=== PATIENT | female | born 1940 | race Caucasian/White ===

== ENCOUNTER 2019-11-25 14:31 | Outpatient (CLI) | payer MEDICARE, SELFPAY ==
--- NOTE | ~2019-11-25 | XR_ITS ---
XR chest 2V DATE: 11/25/2019 14:51 INDICATION: Cough, shortness of breath TECHNIQUE: PA and lateral views COMPARISON: 02/20/2018 portable AP chest FINDINGS: Heart size is within normal range. There is aortic calcification. No hilar or mediastinal e nlargement. There is suggestion of a subtle opacity overlying the lower left paraspinal area. Questio nable 1 cm opacity overlying right lung base. Lung mass cannot be excluded. CT thorax examination wit h IV contrast material is recommended. There is mild infiltrate, atelectasis or scarring at the lung bases, left greater than right. Surgical clips, right upper quadrant, consistent with cholecystectomy. Diffuse osteopenia. IMPRESSION: Cannot exclude mass density in the posteromedial left lower lobe or right lung base; roya mmend CT thorax with IV contrast material Mild infiltrate, atelectasis and/or scarring at the lung bases, left greater than right Dr. Larsen telephoned the report including possible lung masses and recommendation for an IV contrast C T thorax examination to Dr. Ramirez on 11/25/2019 at 1310 hours Reviewed, dictated and finalized at location B. DULE ANNOUNCER IMPRESSION: Cannot exclude mass density in the posteromedial left lower lobe or right lung base; recommend CT thorax with IV contrast material Mild infiltrate, atelectasis and/or scarring at the lung bases, left greater th an right Dr. Larsen telephoned the report including possible lung masses and recommendatio n for an IV contrast CT thorax examination to Dr. Ramirez on 11/25/2019 at 1310 hours
== END 2019-11-25 14:32 | disposition home or self-care (01) ==
LOC: ANHIMG 14:34
PROVIDERS: PCP Family Medicine; Visit Provider Physician Assistant
DX: R06.02 Shortness of breath (principal); R05 Cough; J98.11 Atelectasis
CPT/HCPCS: 71046

== ENCOUNTER 2019-12-10 09:02 | Outpatient (CLI) | payer MEDICARE, SELFPAY ==
--- NOTE | ~2019-12-10 | CT_ITS ---
EXAMINATION: CT chest w con DATE: 12/10/2019 09:54 INDICATION: Possible mass seen on recent chest x-ray TECHNIQUE: Computed tomography (CT) of the chest was performed with 75 cc Omnipaque 350 intravenous c ontrast. The dose-length product was 165.16 mGy-cm. Automated exposure control and iterative reconstr uction technique were employed. COMPARISON: Chest x-ray dated 11/25/2019 FINDINGS: There is lingular and left lower lobe airspace disease. Calcified granuloma in the upper lo bes. Right basilar atelectasis. No endobronchial lesions. There is mediastinal lymphadenopathy. Right paratracheal lymph node measures 1.7 cm. Small right pleural effusion. Status post cholecystectomy. Fatty infiltration of the liver. Calcified granulomas of the spleen. Sma ll hiatal hernia. IMPRESSION: 1. Lingular and left lower lobe airspace disease which may represent atelectasis or developing pneumo bigg. 2: Small right pleural effusion. 3: Mediastinal lymphadenopathy, nonspecific. 4: Elevated right diaphragm, suspicious for phrenic nerve paralysis. Reviewed, dictated and finalized at location A. ATOR TECHNICIAN IMPRESSION: 1. Lingular and left lower lobe airspace disease which may represent atelectasi s or developing pneumonia. 2: Small right pleural effusion. 3: Mediastinal lymphadenopathy, nonspecific. 4: Elevated right diaphragm, suspicious for phrenic nerve paralysis.
[2019-12-10 09:54] LABS: Estimated Glomerular Filt Rate 43
== END 2019-12-10 09:03 | disposition home or self-care (01) ==
PROVIDERS: PCP Family Medicine; Visit Provider Physician Assistant
DX: J98.6 Disorders of diaphragm (principal); J90 Pleural effusion, not elsewhere classified; R59.1 Generalized enlarged lymph nodes; R91.8 Other nonspecific abnormal finding of lung field; R93.89 Abnormal findings on diagnostic imaging of other specified body structures; R06.02 Shortness of breath; R05 Cough
CPT/HCPCS: 36415; 71260; Q9967

== ENCOUNTER 2020-12-08 17:20 | Inpatient (IN) | payer MEDICARE, SELFPAY ==
[2020-12-08] VITALS (9 sets, daily range): BP systolic 148–183; BP diastolic 77–97; PULSE 77–92; RESP 14–23; TEMP 36.5–36.8; O2SAT 96–98; BMI 25.4
--- NOTE | ~2020-12-08 | CT_ITS ---
EXAMINATION: CT brain wo con INDICATION: Altered mental status COMPARISON: None TECHNIQUE: Standard unenhanced head CT. The dose-length product (DLP) was 605.33 mGy-cm. The mA was a djusted according to patient size. Iterative reconstruction technique was employed. FINDINGS: There is no acute intraparenchymal hemorrhage. No evidence of mass lesion. There is low att enuation in the right parietal lobe with loss of hooper-white differentiation. Old infarcts are again n oted in the right cerebellum. There is mild periventricular and subcortical hypodensity probably rela claude to small vessel ischemic disease. There is mild prominence of the sulci and ventricles related to cerebral atrophy. Intracranial calcified cerebral atherosclerosis is noted. There are no extra-axial collections. There is no mass effect or midline shift. Changes in the globes are likely from ocular lens surgery. There are changes of occipital craniotomy with surgical clips in the area of the right posterior inferior cerebellar artery. The visualized sinuses and mastoid air cells are well aerated. IMPRESSION: 1. Findings consistent with acute to subacute infarction in the right parietal lobe. These findings w ere discussed with Dr. Ahsan M.D. in the Emergency Department at 1925 hours on 12/08/2020. 2. Age related findings. Reviewed, dictated and finalized at location A. OTECHNOLOGIST IMPRESSION: 1. Findings consistent with acute to subacute infarction in the right parietal lobe. These findings were discussed with Dr. Ahsan M.D. in the Emergency Dep artment at 1925 hours on 12/08/2020. 2. Age related findings.
--- NOTE | ~2020-12-08 | XR_ITS ---
EXAMINATION: XR abdomen/kub 1V EXAM DATE: 12/14/2020 13:31 INDICATION: Abdominal distension. TECHNIQUE: Frontal projection(s) of the abdomen for interpretation. Comparison is made to prior exami nation from 07/29/2011. FINDINGS: There is moderate amount of gas. No small bowel dilation, nonobstructive bowel gas patte rn. There are no suspicious calcifications identified. There is no organomegaly suspected. Mild lumbar levoscoliosis. There are cholecystectomy clips. IMPRESSION: Moderate amount of colonic gas. Reviewed, dictated and finalized at location B. LITY SALES AND ADMIN
--- NOTE | ~2020-12-08 | US_ITS ---
EXAMINATION: US carotid duplex BI EXAM DATE: 12/09/2020 09:29 INDICATION: Acute right parietal stroke. TECHNIQUE: Grayscale, color and pulsed Doppler images of the cervical carotid arteries were obtained . The degree of vessel stenosis is placed in one of the following categories: normal, <50% stenosis, 50-69% stenosis, >=70% stenosis but less than near-occlusion, near-occlusion, or occlusion. Note that percent stenosis relative to normal distal artery lumen diameter is indirectly measured from velocit y measurements as described by Joselito, et al. Radiology 2003; 229:340-346. There is no prior study fo r comparison. FINDINGS: RIGHT SIDE: Right common carotid artery peak systolic velocity (PSV in cm/s): 65 Right bulb/internal carotid artery peak systolic velocity (PSV in cm/s): 106 Right internal carotid artery end diastolic velocity (EDV in cm/s): 29 Right ICA/CCA peak systolic ratio: 1.6 Right external carotid artery peak systolic velocity (PSV in cm/s): 77 Right vertebral artery antegrade flow: yes There is moderate carotid bulb plaque. Velocity and Doppler waveforms in the common and internal carotid arteries is normal. LEFT SIDE: Left common carotid artery peak systolic velocity (PSV in cm/s): 94 Left bulb/internal carotid artery peak systolic velocity (PSV in cm/s): 84 Left internal carotid artery end diastolic velocity (EDV in cm/s): 21 Left ICA/CCA peak systolic ratio: 0.9 Left external carotid artery peak systolic velocity (PSV in cm/s): 79 Left vertebral artery antegrade flow: yes There is mild to moderate carotid bulb plaque. Velocity and Doppler waveforms in the common and internal carotid arteries is normal. IMPRESSION: 1. Less than 50 percent stenosis in the right internal carotid artery. 2. Less than 50 percent stenosis in the left internal carotid artery. Reviewed, dictated and finalized at location A. WASHING MACHINE OPERATOR
--- NOTE | 2020-12-08 17:52 | ECG_ITS ---
Measurements Intervals [place] Rate: 84 P: 23 WA: 198 QRS: -29 QRSD: 85 T: 54 QT: 389 QTc: 462 Interpretive Statements SINUS RHYTHM CANNOT RULE OUT SEPTAL INFARCT, AGE INDETERMINATE ABNORMAL ECG Electronically Signed On 12-08-2020 20:16:18 FABRIC PATTERN GRADER by Pee Mendez D.O.
--- NOTE | 2020-12-08 18:04 | ED.NEUROSD ---
HPI - Neuro Symptoms/Deficit General Chief Complaint: Neuro Symptoms/Deficit Stated Complaint: left sided weakness, confusion Time Seen by Provider: 12/08/20 17:46 Source: patient and family Mode of arrival: wheelchair Limitations: altered mental status and dementia History of Present Illness HPI Narrative: Patient is an 79-year-old female brought in due to not speaking full sentences , running into [place] with her walker, does not seem coordinated , confused more than usual started yesterday. Patient is a very poor historian unable to get any history from the patient due to her mental status. Related Data Home Medications Medication Instructions Recorded Confirmed omeprazole 20 mg capsule,delayed 20 mg PO DAILY 09/05/19 12/02/19 release loratadine [Claritin] 10 mg PO DAILY 12/08/20 meclizine 25 mg PO BID 12/08/20 Allergies Allergy/AdvReac Type Severity Reaction Status Date / Time adhesive tape Allergy Unknown Blister Verified 12/08/20 17:40 alendronate sodium Allergy Unknown Nausea Verified 12/08/20 17:40 codeine Allergy Unknown Confusion Verified 12/08/20 17:40 iodine Allergy Unknown Blister Verified 12/08/20 17:40 NSAIDS (Non-Steroidal Allergy Unknown Unknown Verified 12/08/20 17:40 Anti-Inflamma Penicillins Allergy Unknown Hives Verified 12/08/20 17:40 Sulfa (Sulfonamide Allergy Unknown Hallucinati Verified 12/08/20 17:40 Antibiotics) ons Review of Systems Review of Systems: ROS unobtainable: Yes unobtainable due to mental status PMFSH Past Medical History Medical History Anemia Aneurysm Arthritis Asthma Elevated lipids Headache, migraine Hypertension Thyroid disease Surgical History Surgical History History of appendectomy History of cholecystectomy History of hysterectomy History of tonsillectomy Family History Family History Mother Family history of kidney disease Family history of coronary artery disease Family history of renal failure Father Family history of malignant melanoma Family history of lung cancer Family history of congestive heart failure Social History Social History Smoking status: Never smoker Second hand tobacco smoke exposure: No Alcohol intake: never Substance use: never Substance use type: does not use Gender identity (if verbalized by the patient): Female Exam Const: General: cooperative, healthy appearing, comfortable, no acute distress, well developed, alert and awake Orientation/consciousness: oriented to person, oriented to place, No oriented to time and No patient oriented x3 Limitations: no limitations HENMT: Head: normal to inspection, normocephalic and atraumatic Ears: hearing grossly normal bilaterally, TM normal on the right and TM normal on the left General nose exam: Normal external nose present, Normal nares present and No nasal discharge present Face and sinus: normal facial exam Mouth: Yes Normal oral and palatal mucosa present, Yes lip normal, Yes tongue normal and Yes oropharynx normal Throat: posterior oropharynx normal, tonsils normal and uvula midline Eyes: General: appearance normal, both eyes and all related structures Pupils: Equal, round and reactive pupils present EOM: EOMs intact bilaterally Neck: Neck: normal visual inspection, full ROM, no lymphadenopathy and no meningeal signs Chest: Chest palpation & inspection: normal inspection of the chest Resp: Effort & Inspection: normal respiratory effort, able to speak in complete sentences, no respiratory distress and not tachypneic Auscultation: clear to auscultation bilaterally, no crackles, no rales, no rhonchi and no wheezes Cardio: Rate: regular rate Rhythm: regular rhythm GI: Inspection: normal to inspection GI Palp: No abdominal te
[2020-12-08] MEDS: LACTATED RINGERS 1,000 ML 999 ML IV CONT (18:18)
[2020-12-08 18:24] LABS: Basophils Absolute Auto 0.1 K/mm3 (0.0-0.1); Basophils Percent Auto 0.6 % (0.2-1.2); Eosinophils Absolute Auto 0.1 K/mm3 (0-0.3); Eosinophils Percent Auto 1.7 % (0-4.4); Hematocrit 37.7 % (37.0-47.0); Hemoglobin 11.6 g/dL (12.0-15.0); Immature Granulocyte Absolute 0.03 K/mm3 (0.00-0.031); Immature Granulocyte Percent A 0.4 % (0-0.5); Lymphocytes Absolute Auto 2.36 K/mm3 (0.9-3.2); Lymphocytes Percent Auto 27.9 % (18.3-44.2); Mean Corpuscular HGB Conc 30.8 g/dl (32-36); Mean Corpuscular Hemoglobin 25.7 pg (26-34); Mean Corpuscular Volume 83.6 fl (80-100); Mean Platelet Volume 10.5 fl (7.4-10.4); Monocytes Absolute Auto 0.7 K/mm3 (0.1-0.6); Monocytes Percent Auto 7.8 % (2.6-8.5); Neutrophils Absolute Auto 5.2 K/mm3 (1.3-6.7); Neutrophils Percent Auto 61.6 % (45.5-73.1); Platelet Count Result 235 k/mm3 (150-375); Red Blood Count 4.51 M/mm3 (4.2-5.4); Red Cell Distribution Width 15.3 % (11.5-14.5); White Blood Count 8.5 K/mm3 (4.5-10.0)
[2020-12-08 18:34] LABS: INR 0.9; Partial Thromboplastin Time 24.5 SECONDS (22.3-36.8); Prothrombin Time 13.2 Seconds (11.1-14.7)
[2020-12-08 18:36] LABS: Add Urine Microscopic? YES; Appearance Urine Clear (Clear); Bilirubin Urine Negative (Negative); Blood Urine Negative (Negative); Color Urine Yellow (Yellow); Glucose Urine UA Negative (Negative); Ketones Urine Negative (Negative); Lactic Acid Reflex 1.7 mmol/L (0.7-2.1); Leukocyte Esterase Ur Negative LEU/UL (Negative); Mucus Urine Few /lpf; Nitrate Urine Negative (Negative); Protein Urine 1+ mg/dL (Negative); RBC Urine 0-2 /hpf (0-2); Specific Grav Ur 1.019 (1.001-1.035); Squamous Epithelial Cell Urine Occasional /hpf (Few); Urobilinogen Urine Negative mg/dL (<2.0); WBC Urine 0-3 /hpf
[2020-12-08 18:37] LABS: Alanine Aminotransferase 15 U/L (4-35); Albumin Level 4.1 g/dL (3.5-5.1); Alkaline Phosphatase 142 U/L (38-126); Anion Gap 8 mmol/L (8-16); Aspartate Amino Transferase 25 U/L (14-36); Bilirubin,Total 0.2 mg/dL (0.2-1.3); Blood Urea Nitrogen 15 mg/dL (7-17); Calcium 9.1 mg/dL (8.4-10.2); Carbon Dioxide 25 mmol/L (22-30); Chloride 104 mmol/L (98-107); Estimated Glomerular Filt Rate 43; Glucose 110 mg/dL (65-105); Potassium 4.3 mmol/L (3.4-5.0); Sodium 137 mmol/L (137-145)
[2020-12-08 18:48] LABS: Troponin I < 0.012 ng/mL (0.000-0.034)
--- NOTE | 2020-12-08 21:45 | ADMGEN ---
This patient, Narcisa Pimentel, was admitted to IMU Room 207-01. Patient/family oriented to hospital policies and general routines including ID bracelet, bed and alarms, visiting hours, pain management, procedures, bathroom and other care routines, personal items, smoking policy, room service/diet, and visiting hours. Information on how to activate the Rapid Response Team has been discussed. Patient/Family are encouraged to report perceived risks to care and to ask questions if they do not understand what they are told or what they should do.
[2020-12-08] MEDS: LACTATED RINGERS 1,000 ML 100 ML IV CONT (21:58)
--- NOTE | 2020-12-08 22:02 | PM.IMHP ---
H&P: [facility] History of Present Illness Date/Time: 12/08/20 22:02 Chief Complaint: Difficulty speaking, not responding normally Narrative: Narcisa Pimentel is a 79 year old female with a past medical history of dementia, hypertension, and prior cerebral aneurysm clipping who presented to the ER from home due to neurologic changes. The patient's last known well was December 07 in the evening. The patient had not been responding appropriately to verbal commands over the last 24 hours. The patient was speaking to the family answering questions appropriately but not speaking in full sentences. They had noticed some drooping of her left eye and that her tongue would stick out to the right side. Family also reported that the patient had been ignoring her left arm and leg. In the ER the patient was oriented to herself in knew her daughter. At the time of my evaluation the patient was oriented to person, age, place and current month. She was confused as to the year and could not name the current president. She reported a relatively reliable review of systems and could give significant information regarding her family and social history. She had some difficulty relaying her past medical history. At the time my evaluation she was able to move all of her extremities but had some mild weakness in her left hand and leg. Her on evaluation of her extraocular movements patient had a delay in moving to the left visual field. Her tongue was deviated to the right. She reported that she has been having some difficulty speaking but denied difficulty eating were coughing or choking on food. She denies any changes in her vision. The patient was noted to have drooping of the right nasal labial fold and asymmetric smile on the right. He she has chronic difficulty with intermittent urinary incontinence. She denies any constipation or diarrhea. She has not been having any fevers or chills. She denies any headache. The patient's daughter refused aspirin therapy in the ER. She was concerned as the patient had history of prior GI blood loss. The patient had evidently had Hemoccult-positive stool before COVID started. The patient's GI evaluation has subsequently been placed on hold. The physician at [place] instructed them to avoid all NSAIDs until she had a GI evaluation. Review of Systems Review of Systems: Narrative: 12 systems were reviewed with pertinent positives and negatives per HPI. Except as documented in the HPI, all other systems were reviewed and are negative. 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 Dementia GERD (gastroesophageal reflux disease) Headache, migraine Hyperlipidemia Hypertension Hypothyroidism Surgical History Surgical History (Updated 12/09/20 @ 03:19 by Rubi Peguero DO) History of appendectomy History of bilateral cataract extraction History of cholecystectomy History of hysterectomy History of spinal surgery History of tonsillectomy Hx of craniotomy Occipital craniotomy with surgical clips in the area of the posterior inferior cerebellar artery consistent with patient's history of cerebral aneurysm Family History Family History (Updated 12/09/20 @ 03:16 by Rubi Peguero DO) Mother Heart disease Chronic kidney disease Father CHF (congestive heart failure) Malignant melanoma Lung cancer Social History Social History (Updated 12/09/20 @ 03:18 by Rubi Peguero DO) Social History: Primary care physician: Dr. Frankie Ramirez Code status: Full code Healthcare power of health inspector: Cristin (daughter) Smoking status: Never smoker Second hand tobacco smoke exposure: No Alcohol intake: never Substance use: never Substance use type: does not use Gender identity (if verbalized by the patient): Female Spir
[2020-12-09] VITALS (20 sets, daily range): BP systolic 168–192; BP diastolic 73–100; PULSE 80–110; RESP 14–24; TEMP 36.3–37.6; O2SAT 95–99
[2020-12-09] MEDS: LEVOTHYROXINE SODIUM INJ 100 MCG/5 ML VIAL 44 MCG IV PUSH (05:40)
[2020-12-09] MEDS: LACTATED RINGERS 1,000 ML 100 ML IV CONT ×2 (08:16→18:10)
[2020-12-09] MEDS: FAMOTIDINE 20 MG/2 ML VIAL IV PUSH ×2 (08:16→21:24)
[2020-12-09] MEDS: hydrALAZINE HCL 20 MG/ML VIAL 10 MG IV PUSH ×2 (08:50→18:47)
[2020-12-09] MEDS: ONDANSETRON INJ 4 MG/2 ML VIAL IV PUSH ×2 (11:50→21:24)
--- NOTE | 2020-12-09 13:08 | PM.IMPN ---
Progress Note: A&P Assessment and Plan (1) Acute cerebrovascular accident (CVA): Code(s): I63.9 - Cerebral infarction, unspecified Status: Acute Assessment and Plan: Patient is being monitored in the IMU. Neurology has been consulted. Will continue serial neuro check. Patient's family refuses aspirin or Plavix at this time. MRI, carotid Dopplers and echocardiogram have been ordered. Patient will be NPO until evaluated by speech therapy. Continue IV fluid hydration. PT and OT evaluation. 12/09/20 13:08 patient 79-year-old female was brought to the emergency department from home as the family thought the patient was not appropriate and her response and activity and there was a concern of facial droop patient has history with cerebral aneurysm status post repair and clips, patient has history of dementia, and hypertension, unfortunately patient is poor historian unable to provide any review of symptom or history, patient was seen by computer engineer and suspect patient may have a TIA CVA to further evaluate CT scan of the head which showed findings consistent with acute to subacute infarction in the right parietal lobe, bilateral carotid ultrasound are negative for any stenosis, cardiac echo is pending, unable to do MRI due to cerebral clips, will consult neurologist for further recommended, will have a PT OT evaluate the the patient and will monitor (2) Hypertension: Code(s): I10 - Essential (primary) hypertension Status: Acute Assessment and Plan: Will allow for permissive hypertension given the acute/subacute CVA. Will resume the patient's home clonidine once her speech evaluation has been completed. Will provide p.r.n. antihypertensives if needed for systolic blood pressures greater than 185 (3) GERD (gastroesophageal reflux disease): Code(s): K21.9 - Gastro-esophageal reflux disease without esophagitis Status: Acute Assessment and Plan: The patient's home omeprazole is on hold. Will place patient on Pepcid IV b.i.d.. (4) Hypothyroid: Qualifiers: Hypothyroidism type: unspecified Qualified Code(s): E03.9 - Hypothyroidism, unspecified Code(s): E03.9 - Hypothyroidism, unspecified Status: Acute Assessment and Plan: Will place patient on IV levothyroxine well oral replacement is on hold. Subjective Date/time seen: 12/09/20 13:08 patient 79-year-old female was brought to the emergency department from home as the family thought the patient was not appropriate and her response and activity and there was a concern of facial droop patient has history with cerebral aneurysm status post repair and clips, patient has history of dementia, and hypertension, unfortunately patient is poor historian unable to provide any review of symptom or history, patient was seen by computer engineer and suspect patient may have a TIA CVA to further evaluate CT scan of the head which showed findings consistent with acute to subacute infarction in the right parietal lobe, bilateral carotid ultrasound are negative for any stenosis, cardiac echo is pending, unable to do MRI due to cerebral clips, will consult neurologist for further recommended, will have a PT OT evaluate the the patient and will monitor Review of Systems Review of Systems: ROS unobtainable: Yes unobtainable due to mental status Exam Narrative: Exam Narrative: Elderly frail Patient is comfortable, NAD HEENT: eyes are clear and none icteric, unable to appreciate any facial asymmetry LUNGS:CTA HEART: RR S1S2 ABD: BS+, Soft and nontender Lower extremities: no edema SKIN: nonjaundiced Neuro: Unable to examine. Objective Data Vital Signs Vital Signs: Vital Signs - 24 hr 12/08/20 17:28 12/08/20 17:59 12/08/20 18:30 Temperature 97.9 F Pulse Rate 92 88 78 Respiratory Rate 18 15 18 Blood Pressure 148/80 H 178/84 H 181/83 H Pulse Oximetry 96 96 97 12/08/20 18:31 12/08/20 19:11 12/08/20 20:07
--- NOTE | 2020-12-09 13:44 | PCSTNOTE ---
Bedside swallow evaluation complete. Please see ST evaluation for further details and recommendations.
--- NOTE | 2020-12-09 13:45 | PCSTNOTE ---
Bedside swallow evaluation complete. Please see ST evaluation for details and recommendations.
--- NOTE | 2020-12-09 15:09 | WPDNEURCNPN ---
Assessment and Plan Assessment and plan (1) Acute cerebrovascular accident (CVA): Code(s): I63.9 - Cerebral infarction, unspecified Status: Acute Additional Plan ongoing dementia, with history of aneurysmal clipping in the past, and difficulties in speech, MRI suggestive of subacute infarct in right parietal lobe, carotid study less than 50% stenosis bilateral, I will obtain the EEG before any further recommendations are made Consult date: 12/09/20 Time Seen: 15:00 HPI: Narcisa Pimentel is a 79 year old female admitted to the hospital through the emergency room for the complaints of not responding appropriately to verbal commands over the last 24 hours and not communicating in full sentences. The family also noted drooping of her left eye and patient was reportedly negative acting the left upper and left lower extremity. On initial evaluation in the emergency room she was confused to the ear was unable to name the president but was oriented to person age place and current month by the time she was seen by the hospitalist on the floor she was able to move all of her extremities with some mild weakness in her left hand and left lower extremity and her tongue was reportedly deviated to the right side. Patient does have ongoing history of 1. Dementia 2. Hypertension 3. Previous cerebral aneurysm clipping, pertinent studies include the Doppler study of the carotid which revealed less than 50% stenosis bilaterally, CT scan of the head with subacute infarction in the right parietal lobe, patient is hypertensive and receiving the antihypertensive medication that is hydralazine, in the past she had been documented to have old infarct in the right cerebellum and she does have ongoing dementia Review of Systems Review of Systems: All systems reviewed & are unremarkable except as noted in HPI and below PMFSH Past Medical History Medical History Anemia Aneurysm Arthritis Asthma Cerebral aneurysm CVA (cerebral vascular accident) 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 Dementia GERD (gastroesophageal reflux disease) Headache, migraine Hyperlipidemia Hypertension Hypothyroidism Surgical History Surgical History History of appendectomy History of bilateral cataract extraction History of cholecystectomy History of hysterectomy History of spinal surgery History of tonsillectomy Hx of craniotomy Occipital craniotomy with surgical clips in the area of the posterior inferior cerebellar artery consistent with patient's history of cerebral aneurysm Family History Family History Mother Heart disease Chronic kidney disease Father CHF (congestive heart failure) Malignant melanoma Lung cancer Social History Social History Social History: Primary care physician: Dr. Frankie Ramirez Code status: Full code Healthcare power of commercial real estate attorney: Cristin (daughter) Smoking status: Never smoker Second hand tobacco smoke exposure: No Alcohol intake: never Substance use: never Substance use type: does not use Gender identity (if verbalized by the patient): Female Spiritual care concerns: No Meds Home Medications and Allergies Home Medications Medication Instructions Recorded Confirmed Type omeprazole 20 mg capsule,delayed 20 mg PO DAILY 09/05/19 12/08/20 History release levothyroxine 88 mcg tablet 88 mcg PO DAILY #90 tablet 02/10/20 12/08/20 Rx clonidine HCl 0.1 mg tablet 0.1 mg PO BID #60 tablet 09/20/20 12/08/20 Rx donepezil 10 mg PO HS 12/08/20 12/08/20 History loratadine [Claritin] 10 mg PO DAILY 12/08/20 12/08/20 History meclizine 25 mg PO BID PRN 12/08/20 12/08/20 History memantine [Namenda XR] 21 mg PO DAILY 12/08/20 12/08/20 History mirtazapine [Remeron] 30 mg PO HS 12/08/20 12/08/20 History simvasta
[2020-12-09] MEDS: SIMVASTATIN 20 MG TABLET 40 MG PO (21:24)
[2020-12-09] MEDS: DONEPEZIL HCL 10 MG TABLET PO (21:24)
[2020-12-09] MEDS: MIRTAZAPINE 30 MG TABLET PO (21:24)
[2020-12-09] MEDS: cloNIDine HCL 0.1 MG TABLET PO (21:24)
[2020-12-10] VITALS (15 sets, daily range): BP systolic 144–189; BP diastolic 68–119; PULSE 80–106; RESP 14–22; TEMP 35.6–37.1; O2SAT 96–99
--- NOTE | 2020-12-10 | ECHO_ITS ---
Patient Info Name: Narcisa Pimentel Age: 79 years : 1940 Gender: Female Ht: 59 in Wt: 126 lbs BSA: 1.56 m2 HR: 98 bpm BP: 189 / 98 mmHg Technical Quality: Fair Exam Date: 12/10/2020 10:26 AM Exam Location: [facility] Patient Status: Inpatient Admit Date: 12/08/2020 Staff Ordering Physician: Rubi Peguero DO [employer] Speech Language Pathologist: Suri Hernandez RDCS Attending Provider: Rubi Peguero DO Referring Physician: Marielena PATEL; Exam Type: CA echo doppler color flow Study Info Indications - CVA Complete two-dimensional, color flow and Doppler transthoracic echocardiogram is performed. Summary 1. Complete two-dimensional, color flow and Doppler transthoracic echocardiogram is performed. 2. Left ventricular chamber dimension is normal. 3. Left ventricular systolic function is hyperdynamic, estimated at >70%. 4. There is moderately increased left ventricular wall thickness. 5. The left ventricular diastolic function is grade I diastolic dysfunction. 6. E/e' 14 is mildly elevated. 7. There is mild aortic valve sclerosis. 8. The mitral valve has mildly calcified annulus. 9. There is trace mitral valve regurgitation. 10. There is mild tricuspid valve regurgitation. 11. No pulmonary hypertension, estimated pulmonary arterial systolic pressure is 31 mmHg. Left Ventricle E/e' 14 is mildly elevated. Left ventricular chamber dimension is normal. Left ventricular systolic function is hyperdynamic, estimated at >70%. There is moderately increased left ventricular wall thickness. The left ventricular diastolic function is grade I diastolic dysfunction. Right Ventricle Right ventricular chamber dimension is normal. Right ventricular systolic function is normal. Left Atria Left atrial chamber dimension is normal. Right Atria Right atrial chamber dimension is normal. Aortic Valve The aortic valve is trileaflet. There is mild aortic valve sclerosis. There is no aortic valve stenosis. There is no aortic valve regurgitation. Pulmonic Valve There is no pulmonic regurgitation. Mitral Valve The mitral valve has mildly calcified annulus. There is no mitral valve stenosis. There is trace mitral valve regurgitation. Tricuspid Valve There is mild tricuspid valve regurgitation. No pulmonary hypertension, estimated pulmonary arterial systolic pressure is 31 mmHg. Pericardium/Pleural There is no pericardial effusion. Inferior Vena Cava Normal inferior vena cava with >50% collapse upon inspiration consistent with normal right atrial pressure, 5 mmHg. Aorta The aortic root size at the sinus of Valsalva is normal. Left Ventricular Outflow Tract Name Value Normal LVOT 2D LVOT Diameter 1.9 cm LVOT Doppler LVOT Peak Gradient 4 mmHg LVOT Mean Gradient 3 mmHg LVOT VTI 22 cm LVOT VTI/AV VTI Ratio 0.9 LVOT Stroke Volume 60 ml LVOT CO 5.6 l/min LVOT CI 3.6 l/min/m2 Pulmo
[2020-12-10] MEDS: LACTATED RINGERS 1,000 ML 100 ML IV CONT ×3 (03:35→23:50)
[2020-12-10] MEDS: hydrALAZINE HCL 20 MG/ML VIAL 10 MG IV PUSH (03:37)
[2020-12-10 04:43] LABS: Hematocrit 35.8 % (37.0-47.0); Hemoglobin 11.3 g/dL (12.0-15.0); Mean Corpuscular HGB Conc 31.6 g/dl (32-36); Mean Corpuscular Hemoglobin 25.1 pg (26-34); Mean Corpuscular Volume 79.6 fl (80-100); Mean Platelet Volume 10.2 fl (7.4-10.4); Platelet Count Result 284 k/mm3 (150-375); Red Cell Distribution Width 15.9 % (11.5-14.5); White Blood Count 13.8 K/mm3 (4.5-10.0)
[2020-12-10 04:58] LABS: Anion Gap 9 mmol/L (8-16); Blood Urea Nitrogen 9 mg/dL (7-17); Carbon Dioxide 23 mmol/L (22-30); Chloride 104 mmol/L (98-107); Estimated Glomerular Filt Rate 53; Glucose 122 mg/dL (65-105); Magnesium 1.6 mg/dL (1.6-2.3); Potassium 3.4 mmol/L (3.4-5.0); Sodium 136 mmol/L (137-145)
[2020-12-10] MEDS: ONDANSETRON INJ 4 MG/2 ML VIAL IV PUSH (06:24)
[2020-12-10] MEDS: cloNIDine HCL 0.1 MG TABLET PO ×2 (09:20→20:27)
[2020-12-10] MEDS: LORATADINE 10 MG TABLET PO (09:20)
[2020-12-10] MEDS: MEMANTINE HCL XR 7 MG CAP 21 MG PO (09:20)
[2020-12-10] MEDS: FAMOTIDINE 20 MG/2 ML VIAL IV PUSH ×2 (09:20→20:26)
[2020-12-10] MEDS: PANTOPRAZOLE 40 MG TABLET PO (09:20)
--- NOTE | 2020-12-10 15:27 | PM.IMPN ---
Progress Note: A&P Assessment and Plan (1) Acute cerebrovascular accident (CVA): Code(s): I63.9 - Cerebral infarction, unspecified Status: Acute Assessment and Plan: Patient is being monitored in the IMU. Neurology has been consulted. Will continue serial neuro check. Patient's family refuses aspirin or Plavix at this time. MRI, carotid Dopplers and echocardiogram have been ordered. Patient will be NPO until evaluated by speech therapy. Continue IV fluid hydration. PT and OT evaluation. 12/10/20 15:27 12/09 patient 79-year-old female was brought to the emergency department from home as the family thought the patient was not appropriate and her response and activity and there was a concern of facial droop patient has history with cerebral aneurysm status post repair and clips, patient has history of dementia, and hypertension, unfortunately patient is poor historian unable to provide any review of symptom or history, patient was seen by environmental health nurse and suspect patient may have a TIA CVA to further evaluate CT scan of the head which showed findings consistent with acute to subacute infarction in the right parietal lobe, bilateral carotid ultrasound are negative for any stenosis, cardiac echo is pending, unable to do MRI due to cerebral clips, will consult neurologist for further recommended, will have a PT OT evaluate the the patient and will monitor 12/10 patient still quite somnolent unable to provide detailed review of symptom, CT scan of the head showed findings consistent with acute to subacute infarction in the right parietal lobe, bilateral carotid ultrasound are negative for any stenosis, cardiac echo is normal too, unable to do MRI due to cerebral clips, seen by neurologist and will do EEG for further evaluations, will have PT/OT work with the patient. (2) Hypertension: Code(s): I10 - Essential (primary) hypertension Status: Acute Assessment and Plan: Will allow for permissive hypertension given the acute/subacute CVA. Will resume the patient's home clonidine once her speech evaluation has been completed. Will provide p.r.n. antihypertensives if needed for systolic blood pressures greater than 185 (3) GERD (gastroesophageal reflux disease): Code(s): K21.9 - Gastro-esophageal reflux disease without esophagitis Status: Acute Assessment and Plan: The patient's home omeprazole is on hold. Will place patient on Pepcid IV b.i.d.. (4) Hypothyroid: Qualifiers: Hypothyroidism type: unspecified Qualified Code(s): E03.9 - Hypothyroidism, unspecified Code(s): E03.9 - Hypothyroidism, unspecified Status: Acute Assessment and Plan: Will place patient on IV levothyroxine well oral replacement is on hold. Subjective Date/time seen: 12/10/20 15:27 12/09 patient 79-year-old female was brought to the emergency department from home as the family thought the patient was not appropriate and her response and activity and there was a concern of facial droop patient has history with cerebral aneurysm status post repair and clips, patient has history of dementia, and hypertension, unfortunately patient is poor historian unable to provide any review of symptom or history, patient was seen by environmental health nurse and suspect patient may have a TIA CVA to further evaluate CT scan of the head which showed findings consistent with acute to subacute infarction in the right parietal lobe, bilateral carotid ultrasound are negative for any stenosis, cardiac echo is pending, unable to do MRI due to cerebral clips, will consult neurologist for further recommended, will have a PT OT evaluate the the patient and will monitor 12/10 patient still quite somnolent unable to provide detailed review of symptom, CT scan of the head showed findings consistent with acute to subacute infarction in the right parietal lobe, bilateral carotid ultrasound are negative for any stenosis, cardiac echo i
[2020-12-10] MEDS: MIRTAZAPINE 30 MG TABLET PO (20:27)
[2020-12-10] MEDS: DONEPEZIL HCL 10 MG TABLET PO (20:27)
[2020-12-10] MEDS: SIMVASTATIN 20 MG TABLET 40 MG PO (20:27)
[2020-12-11] VITALS (14 sets, daily range): BP systolic 106–213; BP diastolic 67–96; PULSE 68–108; RESP 14–20; TEMP 35.9–37; O2SAT 95–98
[2020-12-11 04:56] LABS: Hematocrit 32.1 % (37.0-47.0); Mean Corpuscular HGB Conc 31.2 g/dl (32-36); Mean Corpuscular Hemoglobin 25.3 pg (26-34); Mean Corpuscular Volume 81.3 fl (80-100); Mean Platelet Volume 10.1 fl (7.4-10.4); Platelet Count Result 228 k/mm3 (150-375); Red Blood Count 3.95 M/mm3 (4.2-5.4); Red Cell Distribution Width 16.2 % (11.5-14.5); White Blood Count 8.3 K/mm3 (4.5-10.0)
[2020-12-11 05:15] LABS: Anion Gap 3 mmol/L (8-16); Blood Urea Nitrogen 9 mg/dL (7-17); Calcium 8.2 mg/dL (8.4-10.2); Carbon Dioxide 29 mmol/L (22-30); Chloride 106 mmol/L (98-107); Estimated Glomerular Filt Rate 48; Glucose 94 mg/dL (65-105); Potassium 3.2 mmol/L (3.4-5.0); Sodium 138 mmol/L (137-145)
[2020-12-11] MEDS: LEVOTHYROXINE SODIUM 88 MCG TABLET PO (05:57)
[2020-12-11] MEDS: cloNIDine HCL 0.1 MG TABLET PO ×2 (09:05→20:08)
[2020-12-11] MEDS: LORATADINE 10 MG TABLET PO (09:05)
[2020-12-11] MEDS: MEMANTINE HCL XR 7 MG CAP 21 MG PO (09:05)
[2020-12-11] MEDS: FAMOTIDINE 20 MG/2 ML VIAL IV PUSH ×2 (09:05→20:07)
[2020-12-11] MEDS: LACTATED RINGERS 1,000 ML 100 ML IV CONT (09:06)
[2020-12-11] MEDS: PANTOPRAZOLE 40 MG TABLET PO (09:06)
--- NOTE | 2020-12-11 12:59 | PM.IMPN ---
Progress Note: A&P Assessment and Plan (1) Acute cerebrovascular accident (CVA): Code(s): I63.9 - Cerebral infarction, unspecified Status: Acute Assessment and Plan: Pt with CVA, CT scan of the head showed findings consistent with acute to subacute infarction in the right parietal lobe, bilateral carotid ultrasound are negative for any stenosis, cardiac echo is normal too, unable to do MRI due to cerebral clips, seen by neurologist and will do EEG. Awaiting EEG results, Pt to continue PT/ OT. Pt will benefit from rehab placement (2) Hypertension: Code(s): I10 - Essential (primary) hypertension Status: Acute Assessment and Plan: p.r.n. antihypertensives if needed for systolic blood pressures greater than 185 (3) GERD (gastroesophageal reflux disease): Code(s): K21.9 - Gastro-esophageal reflux disease without esophagitis Status: Acute Assessment and Plan: The patient's home omeprazole is on hold. On Pepcid IV b.i.d.. (4) Hypothyroid: Qualifiers: Hypothyroidism type: unspecified Qualified Code(s): E03.9 - Hypothyroidism, unspecified Code(s): E03.9 - Hypothyroidism, unspecified Status: Acute Assessment and Plan: Will place patient on IV levothyroxine. Await swallow evaluation Subjective Date/time seen: 12/11/20 12:59 79-year-old female was brought to the emergency department from home as the family thought the patient was not appropriate and her response and activity and there was a concern of facial droop patient has history with cerebral aneurysm status post repair and clips, patient has history of dementia, and hypertension. Pt had work for stroke awaiting EEG. Ongoing facial weakness and left upper arm weakness Review of Systems Review of Systems: All systems reviewed & are unremarkable except as noted in HPI and below Exam Narrative: Exam Narrative: Elderly Frail HEENT: eyes are clear and none icteric, unable to appreciate any facial asymmetry LUNGS: Clear lungs HEART: RR S1S2 ABD: BS+, Soft and nontender Lower extremities: no edema SKIN: nonjaundiced Neuro: left arm weakness and facial drop. Objective Data Vital Signs Vital Signs: Vital Signs - 24 hr 12/10/20 14:00 12/10/20 16:00 12/10/20 17:38 Temperature 36.6 C Pulse Rate 80 92 91 Respiratory Rate 22 H Blood Pressure 165/70 H Pulse Oximetry 96 12/10/20 18:00 12/10/20 19:21 12/10/20 20:00 Temperature 36.3 C L Pulse Rate 82 86 95 Respiratory Rate 20 Blood Pressure 161/71 H Pulse Oximetry 99 12/10/20 21:39 12/11/20 00:00 12/11/20 01:57 Temperature 36.3 C L Pulse Rate 85 74 85 Respiratory Rate 14 Blood Pressure 106/67 Pulse Oximetry 97 12/11/20 04:00 12/11/20 05:56 12/11/20 08:00 Temperature 36.3 C L Pulse Rate 81 68 71 Respiratory Rate 14 Blood Pressure 189/96 H Pulse Oximetry 98 12/11/20 08:09 12/11/20 10:00 12/11/20 12:33 Temperature 35.9 C L 36.0 C L Pulse Rate 68 80 80 Respiratory Rate 20 20 Blood Pressure 213/77 H 140/76 Pulse Oximetry 96 97 Intake/Output Intake/Output: Intake & Output 12/08/20 12/09/20 12/10/20 12/11/20 23:59 23:59 23:59 23:59 Intake Total 1000 2120 3420 1060 Output Total 400 100 Balance 600 2020 3420 1060 Meds/Results Medications: Active Medications Generic Name Dose Route Start Last Admin Trade Name Vasquezq PRN Reason Stop Dose Admin Clonidine HCl 0.1 mg 12/09/20 21:00 12/11/20 09:05 Clonidine Hcl 0.1 Mg Tablet PO 0.1 mg Q12HR SAMIRA Administration Donepezil HCl 10 mg 12/09/20 21:00 12/10/20 20:27 Donepezil Hcl 10 Mg Tablet PO 10 mg HS SAMIRA Administration Famotidine 20 mg 12/09/20 09:00 12/11/20 09:05 Famotidine 20 Mg/2 Ml Vial IV PUSH 20 mg Q12HR SAMIRA Administration Hydralazine HCl 10 mg 12/09/20 03:27 12/10/20 03:37 Hydralazine Hcl 20 Mg/Ml Vial IV PUSH 10 mg Q8H PRN Administration SBP grea
[2020-12-11] MEDS: hydrALAZINE HCL 20 MG/ML VIAL 10 MG IV PUSH (17:46)
[2020-12-11] MEDS: POTASSIUM CHLORIDE 20 MEQ PACKET (FOR LIQUID) 40 MEQ PO (17:46)
--- NOTE | 2020-12-11 17:50 | PC.NURSE ---
This patient, Narcisa Pimentel, was transferred to [[id number]] on 12/11/20 at 1750. Personal belongings sent with patient. Report given to [PAVITHRA HOPPER]. Appropriate documentation sent with patient.
--- NOTE | 2020-12-11 18:00 | PC.NURSE ---
patient transferred from IMU
[2020-12-11] MEDS: ONDANSETRON INJ 4 MG/2 ML VIAL IV PUSH (18:43)
--- NOTE | 2020-12-11 18:52 | ECG_ITS ---
Measurements Intervals [place] Rate: 108 P: 74 ID: [id number] QRS: -26 QRSD: 85 T: 59 QT: 343 QTc: 460 Interpretive Statements SINUS TACHYCARDIA VENTRICULAR PREMATURE COMPLEX AND FREQUENT ATRIAL PREMATURE COMPLEXES CANNOT RULE OUT SEPTAL INFARCT, AGE INDETERMINATE BORDERLINE ST-T WAVE ABNORMALITY- HIGH LATERAL LEADS BASELINE ARTIFACT- I, II, III, AVR, AVL, AVF, V4-V6 ABNORMAL ECG Electronically Signed On 12-11-2020 20:15:05 [employer]NAGER [employer] by Pee Mendez D.O.
[2020-12-11] MEDS: SIMVASTATIN 20 MG TABLET 40 MG PO (20:07)
[2020-12-11] MEDS: MIRTAZAPINE 30 MG TABLET PO (20:08)
[2020-12-11] MEDS: DONEPEZIL HCL 10 MG TABLET PO (20:08)
[2020-12-12 05:07] LABS: Hematocrit 35.2 % (37.0-47.0); Hemoglobin 10.8 g/dL (12.0-15.0); Mean Corpuscular HGB Conc 30.7 g/dl (32-36); Mean Corpuscular Hemoglobin 25.5 pg (26-34); Mean Platelet Volume 10.2 fl (7.4-10.4); Platelet Count Result 213 k/mm3 (150-375); Red Blood Count 4.24 M/mm3 (4.2-5.4); Red Cell Distribution Width 16.4 % (11.5-14.5); White Blood Count 8.7 K/mm3 (4.5-10.0)
[2020-12-12] MEDS: LACTATED RINGERS 1,000 ML 100 ML IV CONT (05:15)
[2020-12-12 05:24] LABS: Anion Gap 6 mmol/L (8-16); Blood Urea Nitrogen 9 mg/dL (7-17); Calcium 8.4 mg/dL (8.4-10.2); Carbon Dioxide 27 mmol/L (22-30); Chloride 105 mmol/L (98-107); Estimated Glomerular Filt Rate 53; Glucose 106 mg/dL (65-105); Potassium 3.5 mmol/L (3.4-5.0); Sodium 138 mmol/L (137-145)
[2020-12-12] MEDS: LEVOTHYROXINE SODIUM 88 MCG TABLET PO (05:45)
[2020-12-12 06:00] VITALS: BP 183/71; PULSE 86; RESP 20; TEMP 36.3; O2SAT 99
[2020-12-12] MEDS: FAMOTIDINE 20 MG/2 ML VIAL IV PUSH ×2 (09:04→20:20)
[2020-12-12] MEDS: PANTOPRAZOLE 40 MG TABLET PO (09:07)
[2020-12-12] MEDS: LORATADINE 10 MG TABLET PO (09:07)
[2020-12-12] MEDS: MEMANTINE HCL XR 7 MG CAP 21 MG PO (09:07)
[2020-12-12] MEDS: cloNIDine HCL 0.1 MG TABLET PO ×2 (09:07→20:21)
--- NOTE | 2020-12-12 09:29 | WPDNEUROLOGY ---
Neurology EEG Report General Information Date of Study: 12/11/20 TEST eeg DIAGNOSIS change in the mental status CONDITION OF RECORDING patient was nonverbal and no particular history was available EEG NUMBER [id number] CLINICAL HISTORY change in the mental status EEG DESCRIPTION background rhythm consists of low to medium voltage 5 to 7 hertz per second theta admixed with low-voltage to medium voltage 8 to 9 hertz per second alpha intermittent bihemispheric theta and delta activity seen anteriorly. Non paroxysmal nonfocal nonlateralizing IMPRESSION abnormal record due to the presence of bihemispheric theta and delta activity without any evidence of paroxysmal discharge. These abnormalities suggestive of organic or metabolic encephalopathy clinical correlation recommended possibility of focal structural lesion cannot be ruled out
--- NOTE | 2020-12-12 10:57 | PM.IMPN ---
Progress Note: A&P Assessment and Plan (1) Acute cerebrovascular accident (CVA): Code(s): I63.9 - Cerebral infarction, unspecified Status: Acute Assessment and Plan: Pt with CVA, CT scan of the head showed findings consistent with acute to subacute infarction in the right parietal lobe, bilateral carotid ultrasound are negative for any stenosis, cardiac echo is normal too, unable to do MRI due to cerebral clips, seen by neurologist and will do EEG. Sp EEG. Pt to continue PT/ OT. Pt will benefit from rehab placement (2) Hypertension: Code(s): I10 - Essential (primary) hypertension Status: Acute Assessment and Plan: p.r.n. antihypertensives if needed for systolic blood pressures greater than 185 (3) GERD (gastroesophageal reflux disease): Code(s): K21.9 - Gastro-esophageal reflux disease without esophagitis Status: Acute Assessment and Plan: The patient's home omeprazole is on hold on oral protonix. (4) Hypothyroid: Qualifiers: Hypothyroidism type: unspecified Qualified Code(s): E03.9 - Hypothyroidism, unspecified Code(s): E03.9 - Hypothyroidism, unspecified Status: Acute Assessment and Plan: On thyroxine sp swallow study Subjective Date/time seen: 12/12/20 10:57 Interval history: 79-year-old female was brought to the emergency department from home as the family thought the patient was not appropriate and her response and activity and there was a concern of facial droop patient has history with cerebral aneurysm status post repair and clips, patient has history of dementia, and hypertension. Pt had work up for stroke had EEG, unable to do MRI because of aneurysm in her brain. Ongoing facial weakness and left upper arm weakness. DC to facility soon. Review of Systems Review of Systems: All systems reviewed & are unremarkable except as noted in HPI and below ROS unobtainable: Yes unobtainable due to mental status Exam Narrative: Exam Narrative: Elderly Frail HEENT: eyes are clear and none icteric, unable to appreciate any facial asymmetry LUNGS: Clear lungs HEART: RR S1S2 ABD: BS+, Soft and nontender Lower extremities: no edema SKIN: nonjaundiced Neuro: left arm weakness 4/5 and facial droop. Objective Data Vital Signs Vital Signs: Vital Signs - 24 hr 12/11/20 12:00 12/11/20 12:33 12/11/20 17:23 Temperature 36.0 C L 37.0 C Pulse Rate 85 80 78 Respiratory Rate 20 20 Blood Pressure 140/76 198/69 H Pulse Oximetry 97 97 12/11/20 18:09 12/11/20 18:45 12/11/20 22:00 Temperature 36.0 C L 36.1 C L Pulse Rate 106 H 108 H 106 H Respiratory Rate 18 18 Blood Pressure 163/96 H 184/69 H 181/82 H Pulse Oximetry 95 97 12/11/20 23:49 12/12/20 06:00 Temperature 36.3 C L Pulse Rate 86 Respiratory Rate 20 Blood Pressure 183/85 H 183/71 H Pulse Oximetry 99 Intake/Output Intake/Output: Intake & Output 12/09/20 12/10/20 12/11/20 12/12/20 23:59 23:59 23:59 23:59 Intake Total 2120 3420 2400 240 Output Total 100 Balance 2020 3420 2400 240 Meds/Results Medications: Active Medications Generic Name Dose Route Start Last Admin Trade Name Salazar PRN Reason Stop Dose Admin Clonidine HCl 0.1 mg 12/09/20 21:00 12/12/20 09:07 Clonidine Hcl 0.1 Mg Tablet PO 0.1 mg Q12HR SAMIRA Administration Donepezil HCl 10 mg 12/09/20 21:00 12/11/20 20:08 Donepezil Hcl 10 Mg Tablet PO 10 mg HS SAMIRA Administration Famotidine 20 mg 12/09/20 09:00 12/12/20 09:04 Famotidine 20 Mg/2 Ml Vial IV PUSH 20 mg Q12HR SAMIRA Administration Hydralazine HCl 10 mg 12/09/20 03:27 12/11/20 17:46 Hydralazine Hcl 20 Mg/Ml Vial IV PUSH 10 mg Q8H PRN Administration SBP greater than 185 Lactated Ringer's 1,000 mls @ 100 mls/hr 12/08/20 20:20 12/12/20 05:15 Lr - Lactated Ringers Iv IV CONT 100 mls/hr .Q10H SAMIRA Administration Levothyroxine Sodium 88 mcg 12/10/20 06:30 12/12
--- NOTE | 2020-12-12 11:41 | PCOTNOTE ---
Attempted to see patient this am, however patient sleeping upon entering and unable to arouse at this time.
[2020-12-12 14:00] VITALS: BP 146/60; PULSE 77; RESP 16; TEMP 36.2; O2SAT 98
--- NOTE | 2020-12-12 16:06 | PCSTNOTE ---
The patient treatment was not able to be completed on 12/12/20. Will plan to continue treatment per plan of care.
[2020-12-12 17:20] LABS: SARS-CoV-2 RNA PCR Negative
[2020-12-12] MEDS: SIMVASTATIN 20 MG TABLET 40 MG PO (20:20)
[2020-12-12] MEDS: DONEPEZIL HCL 10 MG TABLET PO (20:20)
[2020-12-12] MEDS: MIRTAZAPINE 30 MG TABLET PO (20:20)
[2020-12-12 21:45] VITALS: BP 183/82; PULSE 97; RESP 16; TEMP 36.4; O2SAT 96
[2020-12-12 22:13] VITALS: BP 187/90; PULSE 101; RESP 18; TEMP 36.4; O2SAT 97
[2020-12-12] MEDS: hydrALAZINE HCL 20 MG/ML VIAL 10 MG IV PUSH (22:19)
[2020-12-13] VITALS: BP 190/76; PULSE 96; RESP 18; TEMP 36.6; O2SAT 93
[2020-12-13 05:35] VITALS: BP 180/73; PULSE 96; RESP 16; TEMP 36.4; O2SAT 93
[2020-12-13 05:45] LABS: Hematocrit 34.8 % (37.0-47.0); Hemoglobin 10.7 g/dL (12.0-15.0); Mean Corpuscular HGB Conc 30.7 g/dl (32-36); Mean Corpuscular Hemoglobin 25.2 pg (26-34); Mean Corpuscular Volume 81.9 fl (80-100); Mean Platelet Volume 10.5 fl (7.4-10.4); Platelet Count Result 249 k/mm3 (150-375); Red Blood Count 4.25 M/mm3 (4.2-5.4); Red Cell Distribution Width 16.8 % (11.5-14.5); White Blood Count 9.2 K/mm3 (4.5-10.0)
[2020-12-13 05:58] LABS: Anion Gap 8 mmol/L (8-16); Blood Urea Nitrogen 11 mg/dL (7-17); Calcium 8.6 mg/dL (8.4-10.2); Carbon Dioxide 25 mmol/L (22-30); Chloride 105 mmol/L (98-107); Estimated Glomerular Filt Rate 48; Glucose 103 mg/dL (65-105); Potassium 3.3 mmol/L (3.4-5.0); Sodium 138 mmol/L (137-145)
[2020-12-13] MEDS: LEVOTHYROXINE SODIUM 88 MCG TABLET PO (06:31)
--- NOTE | 2020-12-13 08:33 | PCOTNOTE ---
Attempted to see Patient for OT treatment session at this time. Patients RN in the room also at this time. Patient refusing to open her eyes, holding them shut, declines to open her mouth to take her medications. Therapist performed a cool washcloth to assist with arousing her, no response. Patient will not participate with any activity. Will try back at a later time.
[2020-12-13] MEDS: LORATADINE 10 MG TABLET PO (08:42)
[2020-12-13] MEDS: PANTOPRAZOLE 40 MG TABLET PO (08:42)
[2020-12-13] MEDS: CLOPIDOGREL BISULFATE 75 MG TABLET PO (08:42)
[2020-12-13] MEDS: cloNIDine HCL 0.1 MG TABLET PO ×2 (08:42→20:03)
[2020-12-13] MEDS: MEMANTINE HCL XR 7 MG CAP 21 MG PO (08:42)
[2020-12-13] MEDS: ENOXAPARIN 40 MG/0.4 ML SYRINGE SUB-Q (08:59)
[2020-12-13] MEDS: FAMOTIDINE 20 MG/2 ML VIAL IV PUSH ×2 (09:00→20:03)
--- NOTE | 2020-12-13 11:50 | PCPTNOTE ---
Attempted PT today, patient would not respond or participate in therapy. RN notified, will continue per Plan of Care frequency and duration
--- NOTE | 2020-12-13 11:53 | PM.IMPN ---
Progress Note: A&P Assessment and Plan (1) Acute cerebrovascular accident (CVA): Code(s): I63.9 - Cerebral infarction, unspecified Status: Acute Assessment and Plan: Pt with CVA, CT scan of the head showed findings consistent with acute to subacute infarction in the right parietal lobe, bilateral carotid ultrasound are negative for any stenosis, cardiac echo is normal too, unable to do MRI due to cerebral clips, seen by neurologist and will do EEG. Sp EEG. Pt to continue PT/ OT. Pt will benefit from rehab placement (2) Hypertension: Code(s): I10 - Essential (primary) hypertension Status: Acute Assessment and Plan: p.r.n. antihypertensives if needed for systolic blood pressures greater than 185 (3) GERD (gastroesophageal reflux disease): Code(s): K21.9 - Gastro-esophageal reflux disease without esophagitis Status: Acute Assessment and Plan: The patient's home omeprazole is on hold on oral protonix. (4) Hypothyroid: Qualifiers: Hypothyroidism type: unspecified Qualified Code(s): E03.9 - Hypothyroidism, unspecified Code(s): E03.9 - Hypothyroidism, unspecified Status: Acute Assessment and Plan: On thyroxine sp swallow study Subjective Date/time seen: 12/13/20 11:53 Interval history: 79-year-old female was brought to the emergency department from home as the family thought the patient was not appropriate and her response and activity and there was a concern of facial droop patient has history with cerebral aneurysm status post repair and clips, patient has history of dementia, and hypertension. Pt had work up for stroke had EEG, unable to do MRI because of aneurysm in her brain. Ongoing facial weakness and left upper arm weakness. DC to facility soon. Son is coming to visit today. Review of Systems Review of Systems: All systems reviewed & are unremarkable except as noted in HPI and below Exam Narrative: Exam Narrative: Elderly Frail HEENT: eyes are clear and none icteric, unable to appreciate any facial asymmetry LUNGS: Clear lungs HEART: RR S1S2 ABD: BS+, Soft and nontender Lower extremities: no edema SKIN: nonjaundiced Neuro: left arm weakness 4/5 and facial droop. Objective Data Vital Signs Vital Signs: Vital Signs - 24 hr 12/12/20 14:00 12/12/20 21:45 12/12/20 22:13 Temperature 36.2 C L 36.4 C L 36.4 C Pulse Rate 77 97 101 H Respiratory Rate 16 16 18 Blood Pressure 146/60 H 183/82 H 187/90 H Pulse Oximetry 98 96 97 12/13/20 00:00 12/13/20 05:35 Temperature 36.6 C 36.4 C Pulse Rate 96 96 Respiratory Rate 18 16 Blood Pressure 190/76 H 180/73 H Pulse Oximetry 93 93 Intake/Output Intake/Output: Intake & Output 12/10/20 12/11/20 12/12/20 12/13/20 23:59 23:59 23:59 23:59 Intake Total 3420 2400 1080 60 Balance 3420 2400 1080 60 Meds/Results Medications: Active Medications Generic Name Dose Route Start Last Admin Trade Name Freq PRN Reason Stop Dose Admin Clonidine HCl 0.1 mg 12/09/20 21:00 12/13/20 08:42 Clonidine Hcl 0.1 Mg Tablet PO 0.1 mg Q12HR SAMIRA Administration Clopidogrel Bisulfate 75 mg 12/13/20 09:00 12/13/20 08:42 Clopidogrel Bisulfate 75 Mg Tablet PO 75 mg QAM SAMIRA Administration Donepezil HCl 10 mg 12/09/20 21:00 12/12/20 20:20 Donepezil Hcl 10 Mg Tablet PO 10 mg HS SAMIRA Administration Enoxaparin Sodium 40 mg 12/13/20 09:00 12/13/20 08:59 Enoxaparin 40 Mg/0.4 Ml Syringe SUB-Q 40 mg DAILY SAMIRA Administration Famotidine 20 mg 12/09/20 09:00 12/13/20 09:00 Famotidine 20 Mg/2 Ml Vial IV PUSH 20 mg Q12HR SAMIRA Administration Hydralazine HCl 10 mg 12/09/20 03:27 12/12/20 22:19 Hydralazine Hcl 20 Mg/Ml Vial IV PUSH 10 mg Q8H PRN Administration SBP greater than 185 Levothyroxine Sodium 88 mcg 12/10/20 06:30 12/13/20 06:31 Levothyroxine Sodium 88 Mcg Tablet PO 88 mcg DAILY@0630 [facility] Administratio
--- NOTE | 2020-12-13 13:57 | PCSTNOTE ---
Therapist attempted Speech Therapy session in the afternoon. Patient appeared to be fast asleep however daughter was present and told mother to squeeze her hand, and mother did move hand to squeeze two times. Daughter presented patient with ice cream on spoon, coating the spoon and brought to lips with no response. Therapist offered white soda per tip of straw to demonstrate how to measure small amounts for someone who is not strong enough to sip through a straw; patient offered no response. Therapist discussed possible stomach tube feedings with daughter as daughter reports patient has been consuming very little since hospitalization. Daughter expresses she is unsure of how to proceed. Patient then scratched her nose and daughter tried to offer ice cream again however patient did not respond. Therapist asked patient to follow one step directions and no response was noted. After daughter was instructed on various ways to feed patient safely, session was terminated. Therapist will not charge for this session.
[2020-12-13 14:49] VITALS: BP 184/67; PULSE 86; RESP 18; TEMP 36.4; O2SAT 97
--- NOTE | 2020-12-13 15:54 | PCPTNOTE ---
PT frequency changed from 5-7 days/week to 2-3 days/week as pt has had a decline in medical status.
[2020-12-13 18:18] VITALS: BP 170/89; PULSE 93; RESP 16; TEMP 36.3; O2SAT 98
[2020-12-13] MEDS: SIMVASTATIN 20 MG TABLET 40 MG PO (20:03)
[2020-12-13] MEDS: MIRTAZAPINE 30 MG TABLET PO (20:03)
[2020-12-13] MEDS: DONEPEZIL HCL 10 MG TABLET PO (20:03)
[2020-12-13 20:37] VITALS: BP 180/80; PULSE 89; RESP 18; TEMP 36.2; O2SAT 98
[2020-12-14] VITALS: BP 180/82; PULSE 111; RESP 16; TEMP 36.2; O2SAT 96
[2020-12-14 02:29] VITALS: O2SAT 97
[2020-12-14 04:53] VITALS: BP 180/84; PULSE 94; RESP 18; TEMP 36.2; O2SAT 98
[2020-12-14 05:28] LABS: Hematocrit 35.4 % (37.0-47.0); Mean Corpuscular HGB Conc 31.1 g/dl (32-36); Mean Corpuscular Hemoglobin 25.7 pg (26-34); Mean Corpuscular Volume 82.7 fl (80-100); Mean Platelet Volume 10.2 fl (7.4-10.4); Platelet Count Result 238 k/mm3 (150-375); Red Blood Count 4.28 M/mm3 (4.2-5.4); Red Cell Distribution Width 16.6 % (11.5-14.5); White Blood Count 10.2 K/mm3 (4.5-10.0)
[2020-12-14 05:47] LABS: Anion Gap 8 mmol/L (8-16); Blood Urea Nitrogen 13 mg/dL (7-17); Calcium 8.6 mg/dL (8.4-10.2); Carbon Dioxide 25 mmol/L (22-30); Chloride 105 mmol/L (98-107); Estimated Glomerular Filt Rate 48; Glucose 98 mg/dL (65-105); Potassium 3.4 mmol/L (3.4-5.0); Sodium 138 mmol/L (137-145)
[2020-12-14] MEDS: LEVOTHYROXINE SODIUM 88 MCG TABLET PO (06:04)
[2020-12-14 08:00] VITALS: BP 140/63; PULSE 81; RESP 16; TEMP 36.3; O2SAT 98
[2020-12-14] MEDS: cloNIDine HCL 0.1 MG TABLET PO ×2 (08:05→14:19)
[2020-12-14] MEDS: FAMOTIDINE 20 MG/2 ML VIAL IV PUSH (08:05)
[2020-12-14] MEDS: ENOXAPARIN 40 MG/0.4 ML SYRINGE SUB-Q (08:05)
[2020-12-14] MEDS: CLOPIDOGREL BISULFATE 75 MG TABLET PO (08:05)
[2020-12-14] MEDS: LORATADINE 10 MG TABLET PO (08:05)
[2020-12-14] MEDS: PANTOPRAZOLE 40 MG TABLET PO (08:05)
[2020-12-14] MEDS: MEMANTINE HCL XR 7 MG CAP 21 MG PO (08:05)
--- NOTE | 2020-12-14 08:37 | PM.DS ---
DS: Admitting Diagnosis Admitting Diagnosis Admitting Diagnosis: Difficulty speaking, not responding normally DS: Discharge Diagnosis Discharge Diagnosis (1) Acute cerebrovascular accident (CVA): Code(s): I63.9 - Cerebral infarction, unspecified Status: Acute Assessment and Plan: Pt with CVA, CT scan of the head showed findings consistent with acute to subacute infarction in the right parietal lobe, bilateral carotid ultrasound are negative for any stenosis, cardiac echo is normal too, unable to do MRI due to cerebral clips, seen by neurologist and will do EEG. Sp EEG which showed bihemispheric theta and delta activity. Pt to continue PT/ OT. Pt will be going to rehab placement. Plavix started as pt has NSAID allergy. (2) Hypertension: Code(s): I10 - Essential (primary) hypertension Status: Acute Assessment and Plan: P.r.n. antihypertensives if needed for systolic blood pressures greater than 185. Pt is clonidine twice a day if bp continues to be high increase to three times a day clonidine. (3) GERD (gastroesophageal reflux disease): Code(s): K21.9 - Gastro-esophageal reflux disease without esophagitis Status: Acute Assessment and Plan: The patient's home omeprazole (4) Hypothyroid: Qualifiers: Hypothyroidism type: unspecified Qualified Code(s): E03.9 - Hypothyroidism, unspecified Code(s): E03.9 - Hypothyroidism, unspecified Status: Acute Assessment and Plan: Pt is on thyroxine DS: Summary Hospital Course Hospital Course: 79-year-old female was brought to the emergency department from home as the family thought the patient was not appropriate and her response and activity and there was a concern of facial droop patient has history with cerebral aneurysm status post repair and clips, patient has history of dementia, and hypertension. Pt had work up for stroke had EEG, unable to do MRI because of aneurysm in her brain. Ongoing facial weakness and left upper arm weakness. DC to facility today after covid test is back. Pt bp is slightly high in hospital can increase clonidine to three times a day in that case. Time Spent with Patient Time attestation: Total time spent providing and/or coordinating discharge services:40 minutes on day of discharge Exam Narrative: Exam Narrative: Elderly Frail HEENT: eyes are clear and none icteric, unable to appreciate any facial asymmetry LUNGS: Clear lungs HEART: RR S1S2 ABD: BS+, Soft and nontender Lower extremities: no edema SKIN: nonjaundiced Neuro: left arm weakness 4/5 and facial droop. DS: Data Data Completed and Pending Labs on day of discharge: Labs from last 24 hours 12/14/20 12/14/20 12/13/20 05:10 05:10 12:57 WBC 10.2 H RBC 4.28 Hgb 11.0 L Hct 35.4 L MCV 82.7 MCH 25.7 L MCHC 31.1 L RDW 16.6 H Plt Count 238 MPV 10.2 Sodium 138 Potassium 3.4 Chloride 105 Carbon Dioxide 25 Anion Gap 8 BUN 13 Creatinine 1.10 H Estim Creat Clear Calc Not Reportable Estimated GFR 48 L Glucose 98 Calcium 8.6 SARS-CoV-2 RNA (RT-PCR) Pending Discharge Plan Discharge Attending physician on discharge: Karen Steve Consulting providers: Raza Boothe Discharging Clinician: Karen Steve Anticipated Discharge Date/Time: 12/14/20 16:00 Patient Disposition: Inpatient Rehab Facility Activity: as tolerated Diet: regular Discharge Instructions: Regular diet easy to swallow level 7 Patient Instructions: Ischemic Stroke (DC), Chronic Hypertension (DC) Stand Alone Forms: General Discharge Information Follow-up/Referrals: Frankie Ramirez MD [Primary Care Provider] - Discharge Medications: New clopidogrel 75 mg Tablet 75 mg PO QAM Qty: 90 RF: 0 Continued omeprazole 20 mg capsule,delayed release(DR/EC) 20 mg PO DAILY RF: 0 meclizine 25 mg Tablet 25 mg P
[2020-12-14 11:49] VITALS: BP 171/78
[2020-12-14 14:19] VITALS: BP 146/62
[2020-12-15 01:17] LABS: SARS-CoV-2 RNA PCR Negative
== END 2020-12-14 18:17 | DRG 65 ==
LOC: ANHED 20:27 → ANHIMU 23:31 → ANH2MED 12-12 05:08 → ANHIMU 12-17 16:11
PROVIDERS: Family Medicine; Admitting Provider Internal Medicine; Emergency Provider Emergency Medicine; PCP Family Medicine; Visit Provider Family Medicine
DX: I63.9 Cerebral infarction, unspecified (principal); G81.94 Hemiplegia, unspecified affecting left nondominant side; R41.4 Neurologic neglect syndrome; R29.810 Facial weakness; R41.82 Altered mental status, unspecified; H53.452 Other localized visual field defect, left eye; R47.89 Other speech disturbances; Z20.822 Contact with and (suspected) exposure to COVID-19; K21.9 Gastro-esophageal reflux disease without esophagitis; I10 Essential (primary) hypertension; E03.9 Hypothyroidism, unspecified; F03.90 Unspecified dementia, unspecified severity, without behavioral disturbance, psychotic disturbance, mood disturbance, and anxiety; D64.9 Anemia, unspecified; M19.90 Unspecified osteoarthritis, unspecified site; J45.909 Unspecified asthma, uncomplicated; E07.9 Disorder of thyroid, unspecified; Z90.49 Acquired absence of other specified parts of digestive tract; Z90.710 Acquired absence of both cervix and uterus; Z98.42 Cataract extraction status, left eye; Z98.41 Cataract extraction status, right eye
CPT/HCPCS: 36415; 51701; 70450; 74018; 80048; 80053; 81001; 83605; 83735; 84484; 85025; 85027; 85610; 85730; 92507; 92523; 92610; 93005; 93306; 93880; 95816; 96360; 97110; 97161; 97166; 97530; 97535; 99285; A9270; C9803; J0360; J1650; J2405; J7120; U0003; U0005